=== PATIENT | female | born 1955 | race Caucasian/White ===

== ENCOUNTER 2019-11-06 15:40 | Emergency (ER) | payer OTHER, SELFPAY ==
--- NOTE | ~2019-11-06 | XR_ITS ---
EXAMINATION: XR ribs LT 2V w CXR 2V EXAM DATE: 11/06/2019 16:13 INDICATION: Left-sided chest pain after injury, left rib pain. TECHNIQUE: Frontal projection of the upper left ribs, frontal projection of the lower left ribs, obli que projection of the left ribs, frontal and lateral chest x-ray(s) for interpretation. Comparison is made to prior examination from 10/28/2013. FINDINGS: There are no displaced acute left rib fractures identified. There is no soft tissue abnor mality seen. Consider educating patient that even if there is a radiographically occult nondisplaced rib fracture, there is no specific treatment other than to refrain from activity that prevents healin g. No confluent consolidation, pneumothorax or pleural effusion suspected. IMPRESSION: No displaced left rib fractures. Reviewed, dictated and finalized at location A.
--- NOTE | 2019-11-06 15:46 | ED.GENADULT ---
HPI - General Adult General Chief complaint: Unspecified Stated complaint: Left side rib pain Time Seen by Provider: 11/06/19 15:46 Source: patient Mode of arrival: ambulatory Limitations: no limitations History of Present Illness HPI narrative: 64-year-old female patient presents to the [facility] with complaints of left-sided chest/rib pain. Patient states that last week her son gave her a big hug and states that she felt a cracking feeling to the left side of her chest. Patient states that she does have pain on palpitation to the left side of the chest rib area. Patient states she has been taking Tylenol for her pain. Patient does have a history of COPD and emphysema and she has been taking her rescue inhaler couple of times a day to help prevent coughing. Patient states that the pain does increase when she coughs and feels like she is having a harder time taking a bigger deeper breath. Denies any fevers. Denies any abdominal pain, nausea, vomiting or diarrhea. Related Data Home Medications Medication Instructions Recorded Confirmed albuterol sulfate [Ventolin HFA] 1 inh INHALATION QID 11/06/19 11/06/19 amlodipine [Norvasc] 10 mg PO DAILY 11/06/19 11/06/19 budesonide-formoterol [Symbicort] 2 puff INHALATION Q12H 11/06/19 11/06/19 dextromethorphan-guaifenesin 1 tablet PO Q12H 11/06/19 11/06/19 [Mucinex DM] ezetimibe 10 mg PO DAILY 11/06/19 11/06/19 ipratropium-albuterol 3 ml INHALATION Q6H 11/06/19 11/06/19 omeprazole magnesium [Prilosec] 20 mg PO DAILY 11/06/19 11/06/19 oxybutynin chloride [Ditropan XL] 10 mg PO DAILY 11/06/19 11/06/19 ropinirole [Requip] 0.5 mg PO DAILY 11/06/19 11/06/19 sertraline [Zoloft] 200 mg PO DAILY 11/06/19 11/06/19 Allergies Allergy/AdvReac Type Severity Reaction Status Date / Time No Known Allergies Allergy Verified 11/06/19 15:58 Review of Systems Review of Systems: Narrative: CONSTITUTIONAL: Denies fever, chills, or sweats. EYES: Denies visual changes, redness, or discharge. ENT: Denies rhinorrhea, congestion, sore throat, or otalgia. CARDIOVASCULAR: Positive left-sided chest pain/rib pain, denies palpitations, or edema. RESPIRATORY: Positive chronic cough with dyspnea. GASTROINTESTINAL: Denies abdominal pain, nausea, vomiting, or diarrhea. GENITOURINARY: Denies dysuria or hematuria. SKIN: Denies rash or itching. MUSCULOSKELETAL: Denies back pain, joint pain, or myalgia. NEUROLOGIC: Denies headache, numbness, or weakness. PSYCHIATRIC: Denies anxiety or depression. [facility] Past Medical History Medical History (Updated 11/06/19 @ 16:31 by EBONI Aguilar) Campoverde's esophagus COPD (chronic obstructive pulmonary disease) Depression Emphysema (subcutaneous) (surgical) resulting from a procedure GERD (gastroesophageal reflux disease) Hypertension Surgical History Surgical History (Updated 11/06/19 @ 15:56 by EBONI Aguilar) H/O inguinal hernia repair H/O: hysterectomy History of bladder surgery Bladder suspension x3 Social History Social History Gender identity (if verbalized by the patient): Female Comments At the time of my signature I agree with nursing past medical history, surgical, social, and family history. There is no relevant family history pertinent to the presenting complaint. Exam Narrative: Exam Narrative: GENERAL: Well-appearing, well-nourished, and in no acute distress. HEAD: Normocephalic, atraumatic. EYES: PERRLA and EOMI. ENT: Nares clear, no rhinorrhea or epistaxis. Mucous membranes moist. NECK: Supple. No lymphadenopathy CHEST: Patient has slight expiratory wheezing noted on auscultation to bilateral upper lower lobes. No respiratory distress. No tripoding noted. Patient does have some tenderness on palpation around the fourth and fifth rib area on the anterior chest. No obvious ecchymosis or bruising noted. HEART: Regular rate and rhythm. No murmur heard. Normal peripheral pulses
[2019-11-06 15:53] VITALS: BP 154/73; PULSE 77; RESP 18; TEMP 36.4; O2SAT 93
== END 2019-11-06 16:33 | disposition home or self-care (01) ==
PROVIDERS: Emergency Provider Nurse Practitioner Family
DX: S29.011A Strain of muscle and tendon of front wall of thorax, initial encounter (principal); X58.XXXA Exposure to other specified factors, initial encounter; K22.70 Barrett's esophagus without dysplasia; J44.9 Chronic obstructive pulmonary disease, unspecified; K21.9 Gastro-esophageal reflux disease without esophagitis; I10 Essential (primary) hypertension
CPT/HCPCS: 71045; 71101; 99213; G0463

== ENCOUNTER 2020-02-01 17:25 | Emergency (ER) | payer OTHER, SELFPAY ==
--- NOTE | 2020-02-01 17:32 | ED.SKABFB ---
HPI - Skin/Abscess/Foreign Bdy General Chief complaint: Skin/Abscess/Foreign Body Stated complaint: bumps on back Time Seen by Provider: 02/01/20 17:54 Source: patient and RN notes reviewed Mode of arrival: ambulatory Limitations: no limitations History of Present Illness HPI narrative: 64-year-old female presents with concern for painful bumps on her back. Reports she is not sure how this started. Reports her daughter tried to pop 2 of them, popped 1 of them successfully. Reports that one area has gotten larger and is more painful. MD complaint: abscess/boil Related Data Home Medications Medication Instructions Recorded Confirmed albuterol sulfate [Ventolin HFA] 1 inh INHALATION QID 11/06/19 11/06/19 amlodipine [Norvasc] 10 mg PO DAILY 11/06/19 11/06/19 budesonide-formoterol [Symbicort] 2 puff INHALATION Q12H 11/06/19 11/06/19 dextromethorphan-guaifenesin 1 tablet PO Q12H 11/06/19 11/06/19 [Mucinex DM] ezetimibe 10 mg PO DAILY 11/06/19 11/06/19 ipratropium-albuterol 3 ml INHALATION Q6H 11/06/19 11/06/19 omeprazole magnesium [Prilosec] 20 mg PO DAILY 11/06/19 11/06/19 oxybutynin chloride [Ditropan XL] 10 mg PO DAILY 11/06/19 11/06/19 ropinirole [Requip] 0.5 mg PO DAILY 11/06/19 11/06/19 sertraline [Zoloft] 200 mg PO DAILY 11/06/19 11/06/19 Allergies Allergy/AdvReac Type Severity Reaction Status Date / Time No Known Allergies Allergy Verified 11/06/19 15:58 Review of Systems Review of Systems: Narrative: CONSTITUTIONAL: Denies malaise, chills, sweats, or fever. CARDIOVASCULAR: Denies chest pain, palpitations, or edema. RESPIRATORY: Denies cough or dyspnea. GASTROINTESTINAL: Denies abdominal pain, nausea, vomiting SKIN: Reports itchy, painful bumps on her back MUSCULOSKELETAL: Denies myalgia. NEUROLOGIC: Denies headache. All systems reviewed & are unremarkable except as noted in HPI and below PMFSH Past Medical History Medical History (Updated 02/01/20 @ 18:22 by Alie Kern NP) Campoverde's esophagus COPD (chronic obstructive pulmonary disease) Depression Emphysema (subcutaneous) (surgical) resulting from a procedure GERD (gastroesophageal reflux disease) Hypertension Surgical History Surgical History (Updated 11/06/19 @ 15:56 by EBONI Aguilar) H/O inguinal hernia repair H/O: hysterectomy History of bladder surgery Bladder suspension x3 Social History Social History Gender identity (if verbalized by the patient): Female Comments At time of signature, agree with nursing past medical, surgical, social and family history. There is no relevant family history pertinent to the presenting complaint Exam Narrative: Exam Narrative: GENERAL: Well-appearing, well-nourished, and in no acute distress. HEAD: Normocephalic, atraumatic. EYES: PERRLA, conjunctivae clear ENT: Mucous membranes moist. NECK: Supple. CHEST: No respiratory distress. Speaks in full sentences. HEART: Regular rate and rhythm. SKIN: Warm, dry, no rash. 2 mildly erythematous papules with no surrounding erythema, edema noted to the back, 13 x 13 cm area of induration, erythema and warmth noted to the back with dome shaped center, not superficially fluctuant, central scabbed area NEURO: Alert and oriented x3. PSYCH: Normal mood and affect Course Course Emergency Course: Patient is aware of diagnosis, understands and agrees to treatment plan. Anticipatory guidance given. Patient agrees to follow-up as directed and is aware of reasons to seek care at the emergency department. Portions of this record may have been created with voice recognition software Vital Signs Vital signs: Vital Signs Temperature 99.6 F 02/01/20 17:37 Pulse Rate 83 02/01/20 17:37 Respiratory Rate 18 02/01/20 17:37 Blood Pressure 139/62 02/01/20 17:37 Pulse Oximetry 98 02/01/20 17:37 Temperature 99.6 F 02/01/20 17:37 Pulse Rate 83 02/01/20 17:37 Respiratory Rate
[2020-02-01 17:37] VITALS: BP 139/62; PULSE 83; RESP 18; TEMP 37.6; O2SAT 98
--- NOTE | 2020-02-01 18:07 | PC.NURSE ---
moved to rm 1.
--- NOTE | 2020-02-01 18:09 | PC.NURSE ---
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
== END 2020-02-01 18:28 | disposition home or self-care (01) ==
PROVIDERS: Emergency Provider Nurse Practitioner
DX: L03.312 Cellulitis of back [any part except buttock and flank] (principal); K22.70 Barrett's esophagus without dysplasia; J43.9 Emphysema, unspecified; F32.9 Major depressive disorder, single episode, unspecified; K21.9 Gastro-esophageal reflux disease without esophagitis; I10 Essential (primary) hypertension
CPT/HCPCS: 10060; 99213; G0463

== ENCOUNTER 2020-08-20 15:43 | Emergency (ER) | payer OTHER, SELFPAY ==
--- NOTE | ~2020-08-20 | XR_ITS ---
EXAMINATION: XR chest 2V EXAM DATE: 08/20/2020 16:25 INDICATION: cough,congest,wheezing, 1x day form smoke, hx copd, emphysema. TECHNIQUE: Frontal and lateral projections of the chest obtained and reviewed. Comparison is made to prior examination from 11/06/2019. FINDINGS: Moderate chronic hyperinflation. There is aortic arteriosclerosis. The lungs are clear. T here are no pleural effusions. The cardiomediastinal silhouette is within normal limits. There is n o pneumothorax suspected. The bones and soft tissues are unremarkable. IMPRESSION: 1. No acute cardiopulmonary findings. 2. Hyperinflation. Reviewed, dictated and finalized at location B. 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
[2020-08-20 16:00] VITALS: BP 160/85; PULSE 87; RESP 24; TEMP 36.4; O2SAT 97
--- NOTE | 2020-08-20 16:24 | ED.URI ---
HPI - URI/Sore Throat General Chief Complaint: Upper Respiratory Infection Stated Complaint: Covid Time Seen by Provider: 08/20/20 16:24 Source: patient Mode of arrival: ambulatory Limitations: no limitations History of Present Illness HPI Narrative: Geraldo Ceron is a 64 yo female with a PMH of copd, asthma, emphysema, HTN, comes to the [facility] care at the direction of her doctor as she has a cough that indicates poor air exchange, and who is known to be Covid positive x2 days Patient is being treated for COPD and emphysema-explain his medications at home; has nebulizer at home Related Data Home Medications Medication Instructions Recorded Confirmed amlodipine [Norvasc] 1 mg PO DAILY 08/20/20 08/20/20 ezetimibe [Zetia] 1 mg PO DAILY 08/20/20 08/20/20 [id number] 1 ea INHALATION DIRECTED 08/20/20 08/20/20 [Trelegy Ellipta] montelukast [Singulair] 1 mg PO DAILY 08/20/20 08/20/20 omeprazole 1 mg PO DAILY 08/20/20 08/20/20 oxybutynin chloride [Ditropan XL] 1 mg PO DAILY 08/20/20 08/20/20 sertraline [Zoloft] 1 mg PO DAILY 08/20/20 08/20/20 Allergies Allergy/AdvReac Type Severity Reaction Status Date / Time Dgjccqa-Bar-Tsn Reductase Allergy Unknown Verified 08/20/20 16:15 Inhibitor Review of Systems Review of Systems: Narrative: CONSTITUTIONAL: Denies fever, chills, sweats. EYES: Denies visual changes, redness, discharge. ENT: Denies rhinorrhea, has congestion, sore throat, otalgia. CARDIOVASCULAR: Denies chest pain, palpitations, edema. RESPIRATORY: Has dyspnea, occultly exchanging air no wheezing, has cough GASTROINTESTINAL: Denies abdominal pain, nausea, vomiting, diarrhea. GENITOURINARY: Denies dysuria, hematuria, abnormal discharge SKIN: Denies rash or itching. NEUROLOGIC: Denies numbness, or focal weakness. PSYCHIATRIC: Denies anxiety or depression. [facility] Past Medical History Medical History Campoverde's esophagus COPD (chronic obstructive pulmonary disease) Depression Emphysema (subcutaneous) (surgical) resulting from a procedure GERD (gastroesophageal reflux disease) Hypertension Surgical History Surgical History H/O inguinal hernia repair H/O: hysterectomy History of bladder surgery Bladder suspension x3 Social History Social History (Updated 08/20/20 @ 16:52 by Dahiana Quiñones CNP) Smoking status: Former smoker Smoking end date: 08/07/05 Alcohol intake: current Gender identity (if verbalized by the patient): Female Comments At time of signature, I agree with nursing past medical, surgical, social and family history. There is no relevant family history pertinent to the presenting complaint. Exam Narrative: Exam Narrative: GENERAL: This is a well-nourished, well-developed patient, in mild distress. HEAD: normocephalic, atraumatic. EYES: PERRL. Sclera clear/white. Vision is grossly intact. EARS: External ears normal. Hearing grossly intact. NOSE: External nose normal without nasal discharge, nares without redness, no rhinorrhea. THROAT: Mucous membranes moist, posterior pharynx erythema NECK: Neck supple, tender tender CARDIOVASCULAR: Regular rate and rhythm without murmurs, gallops, or rubs. RESPIRATORY: Severely diminished to auscultation. Breath sounds equal bilaterally. Diffuse mild rhonchi. Able to speak without shortness of breath GASTROINTESTINAL: Abdomen soft, non-tender, SKIN: warm, intact with no suspicious lesions or rash, good texture and turgor. NEURO: awake, alert, and oriented to person, place and time. There were no obvious focal neurologic abnormalities. Steady gait EXTREMITIES: Normal range of motion. BACK: Nontender without deformity Course Course Emergency Course: Patient comes to express care for treatment of COPD exacerbation on their the context of being Covid positive Patient given dexamethasone 6 mg IM here along wi
[2020-08-20] MEDS: ALBUTEROL SULFATE NEB 2.5 MG/3 ML INH 5 MG INHALATION (16:50)
[2020-08-20] MEDS: IPRATROPIUM BR 0.02% INH SOLN 0.5 MG/2.5 ML VIAL 1 MG INHALATION (16:51)
== END 2020-08-20 18:13 | disposition home or self-care (01) ==
PROVIDERS: Emergency Provider Nurse Practitioner
DX: J44.1 Chronic obstructive pulmonary disease with (acute) exacerbation (principal); U07.1 COVID-19; Z87.891 Personal history of nicotine dependence; K22.70 Barrett's esophagus without dysplasia; F32.9 Major depressive disorder, single episode, unspecified; K21.9 Gastro-esophageal reflux disease without esophagitis; I10 Essential (primary) hypertension
CPT/HCPCS: 71046; 94640; 96372; 99213; G0463; J1100

== ENCOUNTER 2021-12-19 16:02 | Emergency (ER) | payer OTHER, SELFPAY ==
--- NOTE | ~2021-12-19 | XR_ITS ---
EXAM: [id number] HISTORY: PULLED AND PAIN, UNDER BREAST AREA, RT RIB COMPARISON: X-ray chest 08/20/2020 FINDINGS: Mild senescent changes in the lungs, otherwise clear. Stable cardiomegaly mediastinal silh ouette. Minimally displaced fracture of the right anterolateral rib. No other fracture detected. IMPRESSION: Minimally displaced left seventh anterolateral rib fracture. Reviewed, dictated and finalized at location K.
[2021-12-19 16:14] VITALS: BP 144/69; PULSE 80; RESP 20; TEMP 36.5; O2SAT 95
--- NOTE | 2021-12-19 16:30 | ED.FALL ---
HPI - Fall General Chief Complaint: Unspecified Stated Complaint: Cracked Rib Time Seen by Provider: 12/19/21 16:30 Source: patient Mode of arrival: ambulatory Limitations: no limitations History of Present Illness HPI Narrative: 66-year-old female presents with complaint of right rib pain for 1 week. States that 1 week ago she bent over to grab the underneath of a dresser and pull on it and when bending over she felt a pop and pull to her right rib cage. States that since then pain has not improved. Is taking ibuprofen or Tylenol at bedtime to sleep but is not helping. She denies cough, shortness of breath. Ambulatory with steady gait. All systems reviewed and negative except as noted above. Related Data Home Medications Medication Instructions Recorded Confirmed amlodipine [Norvasc] 1 mg PO DAILY 08/20/20 12/19/21 ezetimibe [Zetia] 1 mg PO DAILY 08/20/20 12/19/21 omeprazole 1 mg PO DAILY 08/20/20 12/19/21 oxybutynin chloride [Ditropan XL] 1 mg PO DAILY 08/20/20 12/19/21 sertraline [Zoloft] 1 mg PO DAILY 08/20/20 12/19/21 Allergies Allergy/AdvReac Type Severity Reaction Status Date / Time [id number]-NMG-[id number] Reductase Allergy Unknown Verified 12/19/21 16:31 Inhibitor [Gslbjfw-Dyg-Ifx Reductase Inhibitor] Review of Systems Review of Systems: CONSTITUTIONAL: Denies fever, chills, or sweats. EYES: Denies visual changes, redness, or discharge. ENT: Denies rhinorrhea, congestion, sore throat, or otalgia. CARDIOVASCULAR: Denies chest pain, palpitations, or edema. RESPIRATORY: Denies cough or dyspnea. GASTROINTESTINAL: Denies abdominal pain, nausea, vomiting, or diarrhea. GENITOURINARY: Denies dysuria or hematuria. SKIN: Denies rash or itching. MUSCULOSKELETAL: Reports right-sided rib pain. NEUROLOGIC: Denies headache, numbness, or weakness. PSYCHIATRIC: Denies anxiety or depression. All other systems reviewed are negative, except as documented in HPI. [facility] Past Medical History Medical History Campoverde's esophagus COPD (chronic obstructive pulmonary disease) Depression Emphysema (subcutaneous) (surgical) resulting from a procedure GERD (gastroesophageal reflux disease) Hypertension Surgical History Surgical History H/O inguinal hernia repair H/O: hysterectomy History of bladder surgery Bladder suspension x3 Social History Social History (Updated 08/20/20 @ 16:52 by Dahiana Quiñones CNP) Smoking status: Former smoker Smoking end date: 08/07/05 Alcohol intake: current Gender identity (if verbalized by the patient): Female Comments At time of signature, agree with nursing past medical, surgical, social and family history. There is no relevant family history pertinent to the presenting complaint. Exam Narrative: GENERAL: This is a well-nourished, well-developed patient, in no apparent distress. HEAD: normocephalic, atraumatic. EYES: PERRL. Sclera clear/white. Vision is grossly intact. EARS: External ears normal NOSE: External nose normal NECK: Neck supple, non-tender without lymphadenopathy, masses or thyromegaly. CARDIOVASCULAR: Regular rate and rhythm without murmurs, gallops, or rubs. RESPIRATORY: Clear to auscultation. Breath sounds equal bilaterally. No wheezes, rales, or rhonchi. SKIN: warm, Dry, intact with no suspicious lesions or rash, good texture and turgor. NEURO: awake, alert, and oriented to person, place and time. There were no obvious focal neurologic abnormalities. EXTREMITIES: Normal range of motion to all extremities. MUSCULOSKELETAL: Tenderness on palpation to seventh and eighth ribs directly beneath right breast. There is no significant bruising or swelling noted. Course Course Level of Care: Express Care Visit Vital Signs Vital signs: Vital Signs Temperature 36.5 C 12/19/21 16:14 Pulse Rate 80 12/19/21 16:14 Respiratory Rate 20 05/
== END 2021-12-19 17:05 | disposition home or self-care (01) ==
PROVIDERS: Emergency Provider Nurse Practitioner Family
DX: S22.31XA Fracture of one rib, right side, initial encounter for closed fracture (principal); X50.9XXA Other and unspecified overexertion or strenuous movements or postures, initial encounter; K22.70 Barrett's esophagus without dysplasia; J44.9 Chronic obstructive pulmonary disease, unspecified; K21.9 Gastro-esophageal reflux disease without esophagitis; I10 Essential (primary) hypertension; F32.A Depression, unspecified; Z87.891 Personal history of nicotine dependence
CPT/HCPCS: 71101; 99213; G0463

== ENCOUNTER 2022-04-08 17:36 | Emergency (ER) | payer OTHER, SELFPAY ==
--- NOTE | ~2022-04-08 | XR_ITS ---
EXAMINATION: XR chest 2V DATE: 04/08/2022 18:05 INDICATION: 3-4 days of cough TECHNIQUE: PA and lateral views of the chest were obtained. COMPARISON: Chest radiograph dated 08/20/[address] dated 01/03/2014 FINDINGS: Increased lucency and architectural distortion in the upper lung zones consistent with emphysema bett er appreciated on prior CT. Unchanged linear bands of discoid atelectasis/scarring at the lingula, ri ght middle and right lower lobes. Small bilateral paracardial fat pads. No new airspace opacities, pu lmonary edema, pleural effusion or pneumothorax. The cardiomediastinal silhouette is normal. Moderate thoracic spondylosis. IMPRESSION: 1. No acute cardiopulmonary disease. 2. Emphysema with stable appearance of chronic discoid atelectasis/scarring at the lingula, right mid dle and lower lobes. Reviewed, dictated and finalized at location A. IMPRESSION: 1. No acute cardiopulmonary disease. 2. Emphysema with stable appearance of chronic discoid atelectasis/scarring at the lingula, right middle and lower lobes.
[2022-04-08 17:45] VITALS: BP 174/64; PULSE 73; RESP 18; TEMP 36; O2SAT 96
--- NOTE | 2022-04-08 17:45 | ED.URI ---
HPI - URI/Sore Throat General Chief Complaint: Upper Respiratory Infection Stated Complaint: cough/sob Time Seen by Provider: 04/08/22 17:59 Source: patient, RN notes reviewed and old records reviewed Mode of arrival: ambulatory Limitations: no limitations History of Present Illness HPI Narrative: 66-year-old female presents to the [facility] with complaints of cough, shortness of breath. Has a history of COPD and asthma. Reports that symptoms started Monday or Monday 3 to 4 days ago. Worse yesterday. Use nebulizer DuoNeb last night. States she had some relief and was able to work today. Tried calling her primary care provider and was told they could not see her today. Referred to the [facility]. Patient states that she normally needs steroids Denies chest pain. Denies fevers. No nausea or vomiting. Related Data Home Medications Medication Instructions Recorded Confirmed amlodipine 10 mg tablet (Norvasc) 1 mg PO DAILY 08/20/20 04/08/22 ezetimibe 10 mg tablet (Zetia) 1 mg PO DAILY 08/20/20 04/08/22 omeprazole 20 mg capsule,delayed 20 mg PO DAILY 08/20/20 04/08/22 release oxybutynin chloride 10 mg 1 mg PO DAILY 08/20/20 04/08/22 tablet,extended release 24 hr (Ditropan XL) sertraline 100 mg tablet (Zoloft) 1 mg PO DAILY 08/20/20 04/08/22 fluticasone fur. 100 mcg-umeclid 1 inh inhalation DIRECTED 04/08/22 04/08/22 62.5 mcg-vilant 25 mcg inhalat.powder (Trelegy Ellipta) montelukast 10 mg tablet 10 mg PO DAILY 04/08/22 04/08/22 ropinirole 0.5 mg tablet 0.5 mg PO DAILY 04/08/22 04/08/22 Allergies Allergy/AdvReac Type Severity Reaction Status Date / Time Xfmupus-EIJ-StQ Reductase Allergy Unknown Verified 04/08/22 17:40 Inhibitor [Minkugs-Ocy-Kjt Reductase Inhibitor] Review of Systems Review of Systems: All systems reviewed & are unremarkable except as noted in HPI and below Constitutional: Constitutional: Reports no additional constitutional complaints, Denies chills and Denies fever(s) Eyes: Eyes: Reports no additional eye complaints ENT: Reports system reviewed and no additional complaints, except as documented Cardiovascular: Cardiovascular: Reports no additional cardiovascular complaints Respiratory: Respiratory: Reports as per HPI, Reports cough and Reports dyspnea Gastrointestinal: Gastrointestinal: Reports no additional gastrointestinal complaints Musculoskeletal: Musculoskeletal: Reports no additional musculoskeletal complaints Integumentary/Breasts: Skin/Breast: Reports system reviewed and no additional complaints, except as docu Neurologic: Reports system reviewed and no additional complaints, except as documented Psychiatric: Psychiatric: Reports no additional psychiatric complaints Allergic/Immunologic: Allergic/Immunologic: Reports no additional allergic/immunologic complaints PMFSH Past Medical History Medical History Campoverde's esophagus COPD (chronic obstructive pulmonary disease) Depression Emphysema (subcutaneous) (surgical) resulting from a procedure GERD (gastroesophageal reflux disease) Hypertension Surgical History Surgical History H/O inguinal hernia repair H/O: hysterectomy History of bladder surgery Bladder suspension x3 Social History Social History (Updated 08/20/20 @ 16:52 by Dahiana Quiñones CNP) Smoking status: Former smoker Smoking end date: 08/07/05 Alcohol intake: current Gender identity (if verbalized by the patient): Female Comments At the time of my signature, I reviewed and agree with the nursing past medical, surgical, social, and family history. There is no relevant family history pertinent to the patient complaint. Exam Const: General: healthy appearing, no acute distress and alert Nutritional Appearance: well nourished Orientation/consciousness: patient oriented x3 Limitations: no limitations HE
[2022-04-08] MEDS: IPRATROPIUM BR 0.02% INH SOLN 0.5 MG/2.5 ML VIAL INHALATION (18:20)
[2022-04-08] MEDS: ALBUTEROL SULFATE NEB 2.5 MG/3 ML INH INHALATION (18:20)
[2022-04-08 18:55] VITALS: PULSE 76; RESP 22; O2SAT 96
[2022-04-08 19:08] VITALS: BP 151/68; PULSE 76; RESP 22; O2SAT 96
== END 2022-04-08 19:20 | disposition home or self-care (01) ==
PROVIDERS: Emergency Provider Nurse Practitioner
DX: J20.9 Acute bronchitis, unspecified (principal); J44.0 Chronic obstructive pulmonary disease with (acute) lower respiratory infection; Z87.891 Personal history of nicotine dependence; K22.70 Barrett's esophagus without dysplasia; K21.9 Gastro-esophageal reflux disease without esophagitis; I10 Essential (primary) hypertension; F32.A Depression, unspecified
CPT/HCPCS: 71046; 94640; 99213; G0463

== ENCOUNTER 2022-11-15 13:01 | Emergency (ER) | payer OTHER, SELFPAY ==
--- NOTE | ~2022-11-15 | XR_ITS ---
EXAMINATION: XR chest 2V DATE: 11/15/2022 14:32 INDICATION: Cough. TECHNIQUE: Frontal and lateral views of the chest were obtained. COMPARISON: Chest 2 views 04/08/2022, chest CT 01/03/2014 FINDINGS: There are lucencies in the lungs, consistent with emphysema. No pleural effusion or pneumot horax. The heart size is normal. There are prominent paracardial fat pads. IMPRESSION: 1. Emphysema. Reviewed, dictated and finalized at location A. IMPRESSION: 1. Emphysema.
[2022-11-15 13:30] VITALS: BP 151/74; PULSE 90; RESP 18; TEMP 37.3; O2SAT 95
[2022-11-15 13:32] VITALS: BP 151/74; PULSE 90; RESP 18; TEMP 37.3; O2SAT 95
--- NOTE | 2022-11-15 14:14 | ED.GENADULT ---
HPI - General Adult General Chief complaint: Upper Respiratory Infection Stated complaint: COPD Source: patient Mode of arrival: ambulatory Limitations: no limitations History of Present Illness HPI narrative: Patient presents for evaluation of respiratory symptoms for last 2-3 days. Symptoms include a productive cough and shortness of breath. She has an underlying history of COPD. She quit smoking 19 years ago. She denies any fever, chills, nausea, vomiting, diarrhea, sore throat. No recent sick contacts to her knowledge. She took a breathing treatment before coming in today. Related Data Home Medications Medication Instructions Recorded Confirmed amlodipine 10 mg tablet (Norvasc) 1 mg PO DAILY 08/20/20 04/08/22 ezetimibe 10 mg tablet (Zetia) 1 mg PO DAILY 08/20/20 04/08/22 omeprazole 20 mg capsule,delayed 20 mg PO DAILY 08/20/20 04/08/22 release oxybutynin chloride 10 mg 1 mg PO DAILY 08/20/20 04/08/22 tablet,extended release 24 hr (Ditropan XL) sertraline 100 mg tablet (Zoloft) 1 mg PO DAILY 08/20/20 04/08/22 fluticasone fur. 100 mcg-umeclid 1 inh inhalation DIRECTED 04/08/22 04/08/22 62.5 mcg-vilant 25 mcg inhalat.powder (Trelegy Ellipta) montelukast 10 mg tablet 10 mg PO DAILY 04/08/22 04/08/22 ropinirole 0.5 mg tablet 0.5 mg PO DAILY 04/08/22 04/08/22 albuterol sulfate 90 mcg/actuation inhalation 11/15/22 aerosol inhaler ipratropium 0.5 mg-albuterol 3 mg ml inhalation 11/15/22 (2.5 mg base)/3 mL nebulization soln Allergies Allergy/AdvReac Type Severity Reaction Status Date / Time [id number]-[id number]-[id number] Reductase Allergy Unknown Verified 11/15/22 13:31 Inhibitor [Nlxabha-Yll-Zzz Reductase Inhibitor] Review of Systems Review of Systems: CONSTITUTIONAL: Denies fever, chills, or sweats. EYES: Denies visual changes, redness, or discharge. ENT: Denies rhinorrhea, congestion, sore throat, or otalgia. CARDIOVASCULAR: Denies chest pain, palpitations, or edema. RESPIRATORY: Reports nonproductive cough and shortness of breath. GASTROINTESTINAL: Denies abdominal pain, nausea, vomiting, or diarrhea. GENITOURINARY: Denies dysuria or hematuria. SKIN: Denies rash or itching. MUSCULOSKELETAL: Denies back pain, joint pain, or myalgia. NEUROLOGIC: Denies headache, numbness, dizziness, or weakness. PSYCHIATRIC: Denies anxiety or depression. [facility] Past Medical History Medical History Campoverde's esophagus COPD (chronic obstructive pulmonary disease) Depression Emphysema (subcutaneous) (surgical) resulting from a procedure GERD (gastroesophageal reflux disease) Hypertension Surgical History Surgical History H/O inguinal hernia repair H/O: hysterectomy History of bladder surgery Bladder suspension x3 Family History Family History Mother Family history non-contributory Social History Social History Smoking status: Former smoker Smoking end date: 08/07/05 Alcohol intake: current Gender identity (if verbalized by the patient): Female Sexual Orientation (if Verbalized by the Patient): Straight or Heterosexual Spiritual care concerns: No Exam Narrative: GENERAL: Well-appearing, well-nourished, and in no acute distress. HEAD: Normocephalic, atraumatic. EYES: PERRLA and EOMI. ENT: Nares clear, no rhinorrhea or epistaxis. Mucous membranes moist. Oropharynx without tonsillar hypertrophy exudate or other lesions. Bilateral TMs pearly robbins nonbulging NECK: Supple. No adenopathy or masses. No carotid bruits or JVD CHEST: Cough present on exam. Lungs diminished bilaterally. No respiratory distress. No wheezes rales or rhonchi HEART: Regular rate and rhythm. No murmur heard. Normal peripheral pulses. ABDOMEN: Soft, nontender,
[2022-11-15] MEDS: methylPREDNISolone SOD SUCC 125 MG VIAL IM (14:19)
== END 2022-11-15 15:02 | disposition home or self-care (01) ==
PROVIDERS: Emergency Provider Nurse Practitioner; PCP Internal Medicine
DX: J44.1 Chronic obstructive pulmonary disease with (acute) exacerbation (principal); Z20.822 Contact with and (suspected) exposure to COVID-19; Z87.891 Personal history of nicotine dependence; K22.70 Barrett's esophagus without dysplasia; K21.9 Gastro-esophageal reflux disease without esophagitis; I10 Essential (primary) hypertension; F32.A Depression, unspecified
CPT/HCPCS: 71046; 87426; 87804; 96372; 99213; C9803; G0463; J2930

== ENCOUNTER 2023-11-04 14:17 | Emergency (ER) | payer OTHER, SELFPAY ==
--- NOTE | ~2023-11-04 | XR_ITS ---
EXAMINATION: XR chest 2V DATE: 11/04/2023 15:13 INDICATION: Cough. Shortness of breath. TECHNIQUE: Frontal and lateral views of the chest were obtained. COMPARISON: Chest 2 views 11/15/2022, chest CT 01/03/2014 FINDINGS: There is no pneumonia, pleural effusion, or pneumothorax. The heart size is normal. IMPRESSION: 1. No acute cardiopulmonary disease. Reviewed, dictated and finalized at location A.
[2023-11-04 14:25] VITALS: BP 169/84; PULSE 104; RESP 22; TEMP 37.1; O2SAT 91
--- NOTE | 2023-11-04 14:26 | ED.GENADULT ---
HPI - General Adult General Chief complaint: Upper Respiratory Infection Stated complaint: COPD Source: patient Mode of arrival: ambulatory Limitations: no limitations History of Present Illness HPI narrative: 68 y/o female with hx COPD presented for c/o cough and shortness of breath. Onset 2 days. States she gets flare ups about once a year. Pt used DuoNeb at home at 1000. States her home O2 sat 92-94%. Former smoker (20 years). ?She denies any chest pain, heart racing, fever, chills, nausea, vomiting, diarrhea, sore throat.? No recent sick contacts to her knowledge. Related Data Home Medications Medication Instructions Recorded Confirmed amlodipine 10 mg tablet (Norvasc) 10 mg PO DAILY 08/20/20 11/04/23 ezetimibe 10 mg tablet (Zetia) 10 mg PO DAILY 08/20/20 11/04/23 omeprazole 20 mg capsule,delayed 20 mg PO DAILY 08/20/20 11/04/23 release oxybutynin chloride 10 mg 10 mg PO DAILY 08/20/20 11/04/23 tablet,extended release 24 hr (Ditropan XL) sertraline 100 mg tablet (Zoloft) 100 mg PO DAILY 08/20/20 11/04/23 fluticasone fur. 100 mcg-umeclid 1 inh inhalation DIRECTED 04/08/22 11/04/23 62.5 mcg-vilant 25 mcg inhalat.powder (Trelegy Ellipta) montelukast 10 mg tablet 10 mg PO DAILY 04/08/22 11/04/23 ropinirole 0.5 mg tablet 0.5 mg PO DAILY 04/08/22 11/04/23 albuterol sulfate 90 mcg/actuation 2 puff inhalation Q4-8H 11/15/22 11/04/23 aerosol inhaler ipratropium 0.5 mg-albuterol 3 mg 3 ml inhalation Q4-8H 11/15/22 11/04/23 (2.5 mg base)/3 mL nebulization soln Allergies Allergy/AdvReac Type Severity Reaction Status Date / Time [id number] Reductase Allergy Unknown Verified 11/04/23 14:18 Inhibitor [Vngvlyt-Ota-Dbn Reductase Inhibitor] Review of Systems Review of Systems: CONSTITUTIONAL: Denies body aches, fever, chills, or sweats. EYES: Denies visual changes, redness, or discharge. ENT: Denies rhinorrhea, congestion, sore throat, or otalgia. CARDIOVASCULAR: Denies chest pain, palpitations, or edema. RESPIRATORY: Reports cough, sob, wheezing. GASTROINTESTINAL: Denies abdominal pain, nausea, vomiting, or diarrhea. SKIN: Denies rash, itching, or wounds. MUSCULOSKELETAL: Denies back pain, joint pain, or myalgia. NEUROLOGIC: Denies headache, numbness, tingling, or weakness. All systems reviewed & are unremarkable except as noted in HPI and below PMFSH Past Medical History Medical History Campoverde's esophagus COPD (chronic obstructive pulmonary disease) Depression Emphysema (subcutaneous) (surgical) resulting from a procedure GERD (gastroesophageal reflux disease) Hypertension Surgical History Surgical History H/O inguinal hernia repair H/O: hysterectomy History of bladder surgery Bladder suspension x3 Family History Family History Mother Family history non-contributory Social History Social History Smoking status: Former smoker Smoking end date: 08/07/05 Alcohol intake: current Gender identity (if verbalized by the patient): Female Sexual Orientation (if Verbalized by the Patient): Straight or Heterosexual Spiritual care concerns: No Comments At time of signature, I have reviewed and agree with nursing past medical, surgical, social and family history unless otherwise noted. Please see nursing chart for further information. There is no relevant family history pertinent to the presenting complaint Exam Narrative: GENERAL: mildly ill-appearing, nontoxic in no acute distress. EYES: EOMI. No redness or drainage. Conjunctivae normal. ENT: Mucous membranes pink and moist. No rhinorrhea. TMs normal bilaterally. Throat normal. Uvula midline. NECK: Normal AROM. Supple. CHEST: Lungs diminished throughout, scattered Wheezing. Fr
[2023-11-04] MEDS: methylPREDNISolone SOD SUCC 125 MG VIAL IM (14:44)
[2023-11-04 14:45] VITALS: PULSE 102; RESP 22; O2SAT 91
[2023-11-04] MEDS: IPRATROPIUM BR 0.02% INH SOLN 0.5 MG/2.5 ML VIAL INHALATION (14:45)
[2023-11-04] MEDS: ALBUTEROL SULFATE NEB 2.5 MG/3 ML INH INHALATION (14:45)
[2023-11-04 15:45] VITALS: O2SAT 92
== END 2023-11-04 15:45 | disposition home or self-care (01) ==
PROVIDERS: Emergency Provider Nurse Practitioner Family; PCP Internal Medicine
DX: J44.1 Chronic obstructive pulmonary disease with (acute) exacerbation (principal); Z20.822 Contact with and (suspected) exposure to COVID-19; Z87.891 Personal history of nicotine dependence; K22.70 Barrett's esophagus without dysplasia; K21.9 Gastro-esophageal reflux disease without esophagitis; I10 Essential (primary) hypertension; F32.A Depression, unspecified
CPT/HCPCS: 71046; 87426; 87804; 94640; 96372; 99213; G0463; J2930